=== PATIENT | female | born 1980 ===

== ENCOUNTER 2018-06-05 11:49 | Emergency (ER) | payer OTHER ==
[2018-06-05 11:59] VITALS: BP 151/83; PULSE 100; RESP 18; TEMP 98.9; O2SAT 100
--- NOTE | 2018-06-05 12:17 | C.PDOC ---
History Of Present Illness 37 year old female presents to the ED complaining of loose stools and mild left lower quadrant discomfort. Denies vaginal discharge, urinary frequency, hematuria, or . Questionable dysuria. Denies any sick contacts. Reports she might have eaten something high risk 2 days ago. Time Seen by Provider: 06/05/18 12:14 Chief Complaint (Nursing): Abdominal Pain History Per: Patient History/Exam Limitations: no limitations Onset/Duration Of Symptoms: Days Current Symptoms Are (Timing): Still Present Location Of Pain/Discomfort: LLQ Past Medical History Reviewed: Historical Data, Nursing Documentation, Vital Signs Vital Signs: Last Vital Signs Temp 98.9 F 06/05/18 11:56 Pulse 100 H 06/05/18 11:56 Resp 18 06/05/18 11:56 BP 151/83 H 06/05/18 11:56 Pulse Ox 100 06/05/18 11:56 - Medical History PMH: No Chronic Diseases Surgical History: No Surg Hx Family History: States: No Known Family Hx - Social History Hx Alcohol Use: No Hx Substance Use: No - Immunization History Hx Tetanus Toxoid Vaccination: No Hx Influenza Vaccination: No Hx Pneumococcal Vaccination: No Review Of Systems Except As Marked, All Systems Reviewed And Found Negative. Gastrointestinal: Positive for: Abdominal Pain (mild left lower quadrant discomfort ), Diarrhea. Negative for: Nausea, Vomiting Genitourinary: Positive for: Dysuria ((?)). Negative for: Frequency, Vaginal Discharge Physical Exam - Physical Exam Appears: Non-toxic Skin: Warm, Dry Head: Normacephalic Eye(s): bilateral: Normal Inspection Cardiovascular: Rhythm Regular Respiratory: Normal Breath Sounds, No Rales, No Rhonchi, No Wheezing Gastrointestinal/Abdominal: Bowel Sounds (normal and active), Soft, No Tenderness, No Distention, No Guarding, No Rebound Extremity: Normal ROM Neurological/Psych: Oriented x3, Normal Speech Gait: Steady ED Course And Treatment - Laboratory Results Lab Interpretation: Normal (ua neg.) Urine POC: Negative O2 Sat by Pulse Oximetry: 100 (RA) Pulse Ox Interpretation: Normal Medical Decision Making Medical Decision Making: Orders: - Motrin 600mg PO - Maalox 30ml PO no UTI benign belly preg neg mild indigestion vs diarrhea- 3BM yesterday and 2 today no further w/u indicated. Disposition Doctor Will See Patient In The: Office Counseled Patient/Family Regarding: Studies Performed, Diagnosis - Disposition Referrals: [facility] [Outside] [facility] [Outside] [facility] [Outside] [email or web address] [Outside] Disposition: HOME/ ROUTINE Disposition Time: 13:15 Condition: GOOD Additional Instructions: pruebas de embarasso y orina normales Sigue maalox y ibuprofeno miguelina necessario Sigue en la [facility] Familiar miguelina necessario Instructions: Diarrhea in Adolescents and Adults Forms: [facility] (Albanian) Print Language: TELUGU - Clinical Impression Clinical Impression: Diarrhea, Dysuria - Scribe Statement The provider has reviewed the documentation as recorded by the Scribe Beatrice Bennett All medical record entries made by the Scribe were at my direction and personally dictated by me. I have reviewed the chart and agree that the record accurately reflects my personal performance of the history, physical exam, medical decision making, and the department course for this patient. I have also personally directed, reviewed, and agree with the discharge instructions and disposition.
[2018-06-05] MEDS ORDERED: Alum-Mag Hydrox-Simethicone Susp (30 mL) PO STA (12:24)
[2018-06-05] MEDS ORDERED: Alum-Mag Hydrox-Simethicone Susp (30 mL) ONE (12:47)
[2018-06-05 13:00] LABS: SQUAMOUS EPITHIAL 8 /hpf (0-5); URINE BILIRUBIN NEGATIVE (NEGATIVE); URINE BLOOD NEGATIVE (NEGATIVE); URINE CLARITY Hazy (Clear); URINE COLOR Yellow (YELLOW); URINE GLUCOSE (UA) NORMAL (Normal); URINE LEUKOCYTE ESTERASE NEG Leu/uL (Negative); URINE PROTEIN NEGATIVE (NEGATIVE); URINE UROBILINOGEN NORMAL mg/dL (0.2-1.0)
[2018-06-05 13:01] LABS: HCG,QUALITATIVE URINE NEGATIVE (NEGATIVE)
== END 2018-06-05 13:41 | disposition home or self-care (01) ==
LOC: C.ER 11:49
DX: R19.7 Diarrhea, unspecified (principal); R30.0 Dysuria